=== PATIENT | male | born 1955 | race Caucasian/White ===

== ENCOUNTER 2017-03-18 16:10 | Emergency (ER) | payer MEDICARE ==
[2017-03-18 17:27] LABS: HEMOGLOBIN 16.5 gm/dl (14.0-17.5); RED BLOOD COUNT 4.86 M/UL (4.20-5.50); WHITE BLOOD COUNT 7.3 K/UL (4.5-11.0)
[2017-03-18 17:53] LABS: BUN/CREATININE RATIO 14 (0-10)
== END 2017-03-19 01:00 ==
LOC: ER1 16:10
PROVIDERS: Emergency Medicine
DX: I63.9 Cerebral infarction, unspecified (principal); R07.89 Other chest pain; I10 Essential (primary) hypertension; Z79.84 Long term (current) use of oral hypoglycemic drugs; Z79.899 Other long term (current) drug therapy
CPT/HCPCS: 36415; 70450; 71010; 80053; 82550; 82553; 83874; 83880; 84484; 85025; 85610; 85730; 93005; 99285

== ENCOUNTER 2017-06-09 14:50 | Emergency (ER) | payer MEDICARE | END 2017-06-09 19:57 | disposition home or self-care (01) | LOC: ER1 14:50 | DX: S29.011A Strain of muscle and tendon of front wall of thorax, initial encounter (principal); S29.012A Strain of muscle and tendon of back wall of thorax, initial encounter; G89.29 Other chronic pain; E11.9 Type 2 diabetes mellitus without complications; I10 Essential (primary) hypertension; Z87.891 Personal history of nicotine dependence; Z79.84 Long term (current) use of oral hypoglycemic drugs; Z79.899 Other long term (current) drug therapy; Z79.891 Long term (current) use of opiate analgesic; W07.XXXA Fall from chair, initial encounter | CPT/HCPCS: 71250; 99283 ==